=== PATIENT | female | born 1995 | race African-American/Black ===

== ENCOUNTER 2022-10-19 22:15 | Emergency (ER) | payer SELFPAY ==
[~2022-10-19] VITALS: Ht 167.6 cm; Wt 73.0 kg
[2022-10-20] MEDS ORDERED: IBUP-2028 MT (02:24)
[2022-10-20 03:28] VITALS: BP 124/78
== END 2022-10-20 03:28 | disposition home or self-care (01) ==
LOC: ER 22:15
DX: S09.90XA Unspecified injury of head, initial encounter (principal); V49.49XA Driver injured in collision with other motor vehicles in traffic accident, initial encounter; Y93.89 Activity, other specified; Y92.89 Other specified places as the place of occurrence of the external cause; Y99.8 Other external cause status
CPT/HCPCS: 81025; 99285